=== PATIENT | female | born 1995 | race Asian ===

== ENCOUNTER 2018-12-10 04:27 | Emergency (ER) | payer MEDICAID ==
[~2018-12-10] VITALS: Ht 177.8 cm; Wt 52.2 kg
[2018-12-10 04:39] VITALS: BP 108/79
--- NOTE | 2018-12-10 04:39 | NUR ---
ED Nurse Note: PATIENT WALKED IN TO ED DUE TO BURNING WHILE URINATION AND BLADDER PAIN X "FEW MONTHS". PT STATES SHE TOOK METRONIDAZOLE 500MG AND COMPLETED DOSES. AFEBRILE. NO SOB. BREATHING EVEN AND UNLABORED. ALERT AND ORIENTED, VERBALLY REPONSIVE. VSS.
--- NOTE | 2018-12-10 04:45 | NUR ---
ED Nurse Note: URINE COLLECTED AND SENT TO LAB.
[2018-12-10 05:19] LABS: APPEARANCE,URINE CLEAR; BILIRUBIN, URINE NEGATIVE (NEGATIVE); COLOR,URINE PALE YELLOW; GLUCOSE, URINE (UA) NEGATIVE (NEGATIVE); KETONES,URINE NEGATIVE (NEGATIVE); LEUKOCYTE ESTERASE ,URINE 1+ (NEGATIVE); NITRITE,URINE NEGATIVE (NEGATIVE); PH,URINE 6.5 (4.5-8.0); PROTEIN,URINE NEGATIVE (NEGATIVE); UROBILINOGEN,URINE NORMAL MG/DL (0.0-1.0)
[2018-12-10] MEDS ORDERED: PHENAZOPYRIDIN200 MG ORAL (05:32)
[2018-12-10] MEDS ORDERED: CEPHALEXIN500 MG ORAL (05:32)
[2018-12-10 05:41] VITALS: BP 108/79
--- NOTE | 2018-12-10 05:41 | NUR ---
ED Nurse Note: Pt cleared by ERMD for discharge. DC instructions/prescription was given and explained to pt and verbalized understanding of teachings. All medical deviecs such as ID band removed. Pt is AAO x4, ambulatory and left with all personal belongings.
[2018-12-10] MEDS ORDERED: Cephalexin 500mg cap ORAL ONE (05:45)
--- NOTE | 2018-12-10 21:44 | Emergency Room Report ---
History of Present Illness General Chief Complaint: Female Urogenital Problems Source: Patient Present Illness HPI Patient is a 23-year-old female presents after increased dysuria. She reports having increased frequency of urination associated suprapubic pain. She denies any fever. She denies any vomiting. She reports having normal menses. She denies recent sexual intercourse. She had recently been taking metronidazole. She reportedly also had been taking an antifungal medication. Patient states that she lives in [place]. She denies any other complaints at this time. Allergies: Coded Allergies: No Known Allergies (Unverified , 12/10/18) Patient History Past Medical History: see triage record Last Menstrual Period: 12/02/18 Now: No Reviewed Nursing Documentation: PMH: Agreed; PSxH: Agreed Nursing Documentation-PMH Past Medical History: No Stated History Review of Systems All Other Systems: negative except mentioned in HPI Physical Exam Vital Signs Date Time Temp Pulse Resp B/P (MAP) Pulse Ox O2 Delivery O2 Flow Rate FiO2 12/10/18 04:34 97.9 80 19 108/79 (89) 98 Room Air General Appearance: well appearing, no apparent distress, alert, GCS 15 Head: normocephalic, atraumatic ENT: hearing grossly normal, normal voice Neck: full range of motion, supple Respiratory: lungs clear, no respiratory distress, speaking full sentences Gastrointestinal: normal inspection, soft Genitourinary: no CVA tenderness Musculoskeletal: normal inspection, no calf tenderness Neurologic: normal inspection, alert, oriented x3, responsive, senior scientist III-XII nml as tested, normal gait Psychiatric: mood/affect normal Skin: no rash Medical Decision Making Diagnostic Impression: Primary Impression: Urinary tract infection ER Course Patient presented for dysuria. Differential diagnosis included was not limited to appendicitis, urinary tract infection, urethritis, herpes among others. Urinalysis showed slight leukocytosis with some bacteria. Patient has a benign exam and does not appear to require imaging studies or labs at this time. No fever or CVA tenderness to suggest pyelonephritis. Patient was advised outpatient PARTS TECHNICIAN follow-up and STD testing and Pap smear. Patient does not report any recent sexual intercourse and this does not appear to be sexual transmitted infection at this time. Patient appears to be stable for outpatient management. Patient was advised to have urine recheck for clearance. Advised to return for fever, increased pain, persistent vomiting or other concerns. Labs Test 12/10/18 04:40 Urine Color Pale yellow Urine Appearance Clear Urine pH 6.5 (4.5-8.0) Urine Specific [place] 1.020 (1.005-1.035) Urine Protein Negative (NEGATIVE) Urine Glucose (UA) Negative (NEGATIVE) Urine Ketones Negative (NEGATIVE) Urine Blood Negative (NEGATIVE) Urine Nitrite Negative (NEGATIVE) Urine Bilirubin Negative (NEGATIVE) Urine Urobilinogen Normal MG/DL (0.0-1.0) Urine Leukocyte Esterase 1+ (NEGATIVE) Urine RBC 0-2 /HPF (0 - 2) Urine WBC 2-4 /HPF (0 - 2) Urine Squamous Epithelial Cells Few /LPF (NONE/OCC) Urine Bacteria Few /HPF (NONE) Urine HCG, Qualitative Negative (NEGATIVE) Last Vital Signs Date Time Temp Pulse Resp B/P (MAP) Pulse Ox O2 Delivery O2 Flow Rate FiO2 12/10/18 05:41 97.9 80 19 108/79 98 Room Air Status: improved Disposition: HOME, SELF-CARE Condition: Stable Scripts Phenazopyridine Hcl* (PYRIDIUM*) 200 Mg Tablet 200 MG ORAL THREE TIMES A DAY, #14 TAB 0 Refills Prov: Donaldo Emerson MD 12/10/18 Cephalexin* (KEFLEX*) 500 Mg Capsule 500 MG ORAL EVERY 6 HOURS, #28 CAP Prov: Donaldo Emerson MD 12/10/18 Patient Instructions: Urinary Tract Infection Donaldo Emerson MD Dec 10, 2018 21:44
== END 2018-12-10 05:41 | disposition home or self-care (01) ==
LOC: EMR 04:46
DX: N39.0 Urinary tract infection, site not specified (principal)
CPT/HCPCS: 81003; 81025; Z7502; 99283